=== PATIENT | female | born 1970 | race Caucasian/White ===

== ENCOUNTER 2021-08-26 13:08 | Emergency (ER) | payer BC, SELFPAY ==
[~2021-08-26] VITALS: Ht 170.2 cm; Wt 70.3 kg
[2021-08-26 13:38] VITALS: BP_SYST 104
[2021-08-26] MEDS ORDERED: ALBU8.5H8 INH (15:05)
[2021-08-26 15:11] VITALS: BP_SYST 104
== END 2021-08-26 15:11 | disposition home or self-care (01) ==
LOC: SED 13:08
DX: J40 Bronchitis, not specified as acute or chronic (principal); Z20.822 Contact with and (suspected) exposure to COVID-19; Z79.899 Other long term (current) drug therapy
CPT/HCPCS: 36415; 71045; 99284